=== PATIENT | male | born 1935 | race Caucasian/White ===

== ENCOUNTER 2016-09-30 16:10 | Emergency (ER) | payer OTHER, MEDICARE ==
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
[2016-09-30 17:36] VITALS: BP 128/87; PULSE 72; RESP 16; TEMP 97.9; O2SAT 95
== END 2016-09-30 17:36 | disposition home or self-care (01) ==
LOC: EDUNIT#
DX: Z04.3 Encounter for examination and observation following other accident (principal); I10 Essential (primary) hypertension; I25.10 Atherosclerotic heart disease of native coronary artery without angina pectoris; Z79.82 Long term (current) use of aspirin; Z79.01 Long term (current) use of anticoagulants; V89.2XXA Person injured in unspecified motor-vehicle accident, traffic, initial encounter

== ENCOUNTER → 2016-10-07 | Outpatient (CLI) | payer OTHER, MEDICARE | LOC: BMCIMAGING 14:43 | PROVIDERS: ATTEND Physician Assistant Medical | DX: I25.82 Chronic total occlusion of coronary artery (principal); I65.23 Occlusion and stenosis of bilateral carotid arteries; I25.10 Atherosclerotic heart disease of native coronary artery without angina pectoris; E78.5 Hyperlipidemia, unspecified ==

== ENCOUNTER → 2018-01-09 | Outpatient (CLI) | payer OTHER, MEDICARE | LOC: BMCIMAGING 13:17 | PROVIDERS: ATTEND Internal Medicine Cardiovascular Disease | DX: I65.21 Occlusion and stenosis of right carotid artery (principal) ==